=== PATIENT | female | born 1960 | race Caucasian/White ===

== ENCOUNTER 2020-09-30 08:32 | Inpatient (IN) | payer OTHER ==
[~2020-09-30] VITALS: Ht 165.1 cm; Wt 60.1 kg
[2020-09-30] MEDS ORDERED: methylPREDNISolone SOD SUCC 125 MG/2 ML VL ONE (08:40)
[2020-09-30] MEDS ORDERED: ALBUTEROL SULF 2.5 MG/0.5ML(0.5%) NEB SOLN NEB ONE (08:45)
[2020-09-30] MEDS ORDERED: methylPREDNISolone SOD SUCC 125 MG/2 ML VL IV ONE (08:45)
[2020-09-30 08:59] LABS: Basophils # (auto) 0 10 ^3/uL (0-0.2); Basophils % (auto) 0.4 % (0.0-2.0); Eosinophils # (auto) 0.3 10 ^3/uL (0-0.8); Eosinophils % (auto) 3.3 % (0.0-7.0); Hematocrit 37.8 % (36.0-46.0); Hemoglobin 12.5 g/dL (12.2-16.2); Lymphocytes # (auto) 1.7 10 ^3/uL (0.4-5.4); Lymphocytes % (auto) 21.5 % (10.0-50.0); Mean Corpuscular Hemoglobin 32.3 pg (28.0-32.0); Mean Corpuscular Hgb Conc. 33.2 g/dL (32.0-36.0); Mean Corpuscular Volume 97.4 fL (80.0-100.0); Monocytes # (auto) 0.3 10 ^3/uL (0-1.3); Monocytes % (auto) 3.5 % (0.0-12.0); Neutrophils # (auto) 5.5 10 ^3/uL (1.6-8.6); Neutrophils % (auto) 71.3 % (37.0-80.0); Platelet Count (auto) 293 10^3/uL (140-450); Red Blood Cells 3.88 10^6/uL (4.0-5.20); Red Cell Distribution Width 13.7 % (11.8-14.3); White Blood Cell 7.7 10^3/uL (4.4-10.8)
[2020-09-30] MEDS ORDERED: MAGNESIUM SULFATE 1GM/100ML 100 ML IV ONE (09:00)
[2020-09-30 09:13] LABS: Alanine Aminotransferase 17 U/L (13-56); Albumin 3.3 g/dL (3.4-5.0); Anion Gap 0 (5-15); Aspartate Aminotransferase 17 U/L (15-37); BUN/Creatinine Ratio 16.7; Blood Urea Nitrogen 12 mg/dL (7-18); Calcium 9.2 mg/dL (8.5-10.1); Carbon Dioxide 40 mmol/L (21-32); Chloride 101 mmol/L (98-107); GFR African American 106 mL/min; GFR Non-African American 88 mL/min; Glucose 206 mg/dL (74-106); Potassium 4.9 mmol/L (3.5-5.1); Sodium 141 mmol/L (136-145)
[2020-09-30 09:17] LABS: Alkaline Phosphatase 143 U/L (45-117); Bilirubin, Total 0.3 mg/dL (0.2-1.0); Total Protein 7.3 g/dL (6.4-8.2)
[2020-09-30] MEDS ORDERED: NITROGLYCERIN 0.4 MG SL TAB SL PRN (11:30)
[2020-09-30] MEDS ORDERED: ONDANSETRON HCL 4 MG/2 ML VIAL IV PRN (11:30)
[2020-09-30] MEDS ORDERED: HYDROcodone-ACET 5/325MG TAB PO PRN (11:30)
[2020-09-30] MEDS ORDERED: ACETAMINOPHEN 500 MG TAB PO PRN (11:30)
[2020-09-30] MEDS ORDERED: MORPHINE SULF INJ 2 MG/ML SYRINGE 1ML IV PRN ×2 (11:30)
[2020-09-30 12:05] VITALS: BP 118/67
[2020-09-30] MEDS ORDERED: IOHEXOL 350 MG/ML 100ML IJ ONE (12:55)
[2020-09-30] MEDS: ALBUTEROL SULF 2.5 MG/0.5ML(0.5%) NEB SOLN NEB SCH ×2 (13:06→19:13)
[2020-09-30] MEDS: IPRATROPIUM BROM 0.5 MG/2.5ML INH SOL NEB SCH ×2 (13:06→19:13)
[2020-09-30] MEDS: methylPREDNISolone SOD SUCC 125 MG/2 ML VL IV SCH ×2 (14:20→22:12)
[2020-09-30 17:33] VITALS: BP 143/78
[2020-09-30] MEDS: BUDESONIDE (INHALATION) 0.5 MG/2 ML NEB NEB SCH (19:13)
[2020-09-30 22:00] VITALS: BP 112/54
[2020-10-01 04:35] VITALS: BP 105/60
[2020-10-01] MEDS: methylPREDNISolone SOD SUCC 125 MG/2 ML VL IV SCH (06:02)
[2020-10-01] MEDS: BUDESONIDE (INHALATION) 0.5 MG/2 ML NEB NEB SCH (06:31)
[2020-10-01] MEDS: IPRATROPIUM BROM 0.5 MG/2.5ML INH SOL NEB SCH ×3 (06:31→18:50)
[2020-10-01] MEDS: ALBUTEROL SULF 2.5 MG/0.5ML(0.5%) NEB SOLN NEB SCH ×3 (06:31→18:49)
[2020-10-01 09:00] VITALS: BP 138/78
[2020-10-01] MEDS: LORATADINE 10 MG TAB PO SCH (09:30)
[2020-10-01] MEDS: AZITHROMYCIN 250 MG TAB PO SCH (09:33)
[2020-10-01] MEDS ORDERED: FAMOTIDINE 20 MG TAB PO SCH (10:00)
[2020-10-01] MEDS ORDERED: METOPROLOL SUCCINATE XL 50 MG TAB PO ONE (12:30)
[2020-10-01] MEDS ORDERED: ASPirin-EC 81 mg tab PO ONE (12:30)
[2020-10-01] MEDS ORDERED: CHOLECALCIFEROL (VITD3) 2,000 UNIT CAP/TAB PO ONE (12:30)
[2020-10-01 13:00] VITALS: BP 100/49
[2020-10-01] MEDS: methylPREDNISolone SOD SUCC 40 MG/ML VL IV SCH ×2 (14:08→21:47)
[2020-10-01 16:47] VITALS: BP 119/57
[2020-10-01] MEDS: BREZTRI AEROSPHERE IN SCH (21:48)
[2020-10-01 22:00] VITALS: BP 147/51
[2020-10-01] MEDS ORDERED: ATORVASTATIN 20 MG TAB PO SCH (22:00)
[2020-10-02 05:00] VITALS: BP 122/66
[2020-10-02] MEDS: IPRATROPIUM BROM 0.5 MG/2.5ML INH SOL NEB SCH ×2 (06:34→13:15)
[2020-10-02] MEDS: ALBUTEROL SULF 2.5 MG/0.5ML(0.5%) NEB SOLN NEB SCH ×2 (06:35→13:15)
[2020-10-02 09:00] VITALS: BP 110/49
[2020-10-02] MEDS: methylPREDNISolone SOD SUCC 40 MG/ML VL IV SCH (09:54)
[2020-10-02] MEDS: BREZTRI AEROSPHERE IN SCH (09:54)
[2020-10-02] MEDS: LORATADINE 10 MG TAB PO SCH (09:55)
[2020-10-02] MEDS: AZITHROMYCIN 250 MG TAB PO SCH (09:57)
[2020-10-02] MEDS ORDERED: ASPirin-EC 81 mg tab PO SCH (10:00)
[2020-10-02] MEDS ORDERED: CHOLECALCIFEROL (VITD3) 2,000 UNIT CAP/TAB PO SCH (10:00)
[2020-10-02] MEDS ORDERED: METOPROLOL SUCCINATE XL 50 MG TAB PO SCH (10:00)
[2020-10-02] MEDS ORDERED: FEXOFENADINE HCL 60 MG TAB PO ONE (10:45)
[2020-10-02] MEDS ORDERED: NYSTATIN (MOUTH-THROAT) 500,000 UNITS/5 ML SUSP MT ONE (10:45)
[2020-10-02] MEDS ORDERED: SALINE 0.65 % NASAL SPRAY 45ML BOTTLE EACHNOSTRI ONE (10:45)
[2020-10-02] MEDS ORDERED: FEXO-38 PO (11:18)
[2020-10-02] MEDS ORDERED: CHLO4TAB10 PO (11:18)
[2020-10-02] MEDS ORDERED: PRED20TA2 PO (11:18)
[2020-10-02] MEDS ORDERED: AZIT250T9 PO (11:18)
[2020-10-02] MEDS ORDERED: NYS5LQ MT (11:18)
[2020-10-02] MEDS ORDERED: NS45NSL EACHNOSTRI (11:18)
[2020-10-02] MEDS ORDERED: SALINE 0.65 % NASAL SPRAY 45ML BOTTLE EACHNOSTRI SCH (12:00)
[2020-10-02] MEDS ORDERED: NYSTATIN (MOUTH-THROAT) 500,000 UNITS/5 ML SUSP MT SCH (12:00)
[2020-10-02 12:10] VITALS: BP 110/49
[2020-10-02 13:00] VITALS: BP 131/81
[2020-10-02] MEDS ORDERED: FEXOFENADINE HCL 60 MG TAB PO SCH (22:00)
== END 2020-10-02 16:34 | disposition home or self-care (01) | DRG 189 ==
LOC: EDBD 08:32 → ER 08:32 → TELE 11:18 → TELE-CENTR 16:57
PROVIDERS: ADMIT Nurse Practitioner Acute Care; ATTEND Internal Medicine
DX: J96.21 Acute and chronic respiratory failure with hypoxia (principal); B37.0 Candidal stomatitis; J98.11 Atelectasis; J43.2 Centrilobular emphysema; R73.9 Hyperglycemia, unspecified; E78.5 Hyperlipidemia, unspecified; E88.09 Other disorders of plasma-protein metabolism, not elsewhere classified; I25.10 Atherosclerotic heart disease of native coronary artery without angina pectoris; J31.0 Chronic rhinitis; I25.2 Old myocardial infarction; Z87.891 Personal history of nicotine dependence; I10 Essential (primary) hypertension; Z99.81 Dependence on supplemental oxygen; Z20.822 Contact with and (suspected) exposure to COVID-19; Z91.012 Allergy to eggs
CPT/HCPCS: 36415; 71045; 71275; 80053; 83036; 83880; 84484; 85025; 87426; 93005; 94640; 94644; 96365; 96375; 99291; G0378

== ENCOUNTER 2021-03-29 17:04 | Inpatient (IN) | payer OTHER ==
[~2021-03-29] VITALS: Ht 162.6 cm; Wt 60.9 kg
[~2021-03-29 17:04] MED LIST: ALBUTEROL SULF 2.5 MG/0.5ML(0.5%) NEB SOLN NEB ONE; AZIT250T9 PO; CHLO4TAB10 PO; FEXO-90 PO; NS45NSL EACHNOSTRI; NYS5LQ MT; PRED20TA2 PO
[2021-03-29] MEDS ORDERED: EPINEPHrine HCL 1 MG/1 ML AMP ONE (17:07)
[2021-03-29] MEDS ORDERED: methylPREDNISolone SOD SUCC 125 MG/2 ML VL ONE (17:07)
[2021-03-29] MEDS ORDERED: diphenhdrAMINE HCL 50 MG/1 ML VL ONE (17:08)
[2021-03-29] MEDS ORDERED: methylPREDNISolone SOD SUCC 125 MG/2 ML VL IV ONE (17:15)
[2021-03-29] MEDS ORDERED: EPINEPHrine HCL 1 MG/1 ML AMP IM ONE (17:15)
[2021-03-29] MEDS ORDERED: diphenhdrAMINE HCL 50 MG/1 ML VL IV ONE (17:15)
[2021-03-29] MEDS ORDERED: FAMOTIDINE (10MG/ML) 2ML VL IV ONE (17:15)
[2021-03-29 18:17] LABS: Basophils # (auto) 0.1 10 ^3/uL (0-0.2); Basophils % (auto) 0.5 % (0.0-2.0); Eosinophils # (auto) 0.6 10 ^3/uL (0-0.8); Eosinophils % (auto) 3.9 % (0.0-7.0); Hematocrit 37.3 % (36.0-46.0); Hemoglobin 11.9 g/dL (12.2-16.2); Lymphocytes # (auto) 2.1 10 ^3/uL (0.4-5.4); Lymphocytes % (auto) 14.3 % (10.0-50.0); Mean Corpuscular Hemoglobin 30.7 pg (28.0-32.0); Mean Corpuscular Hgb Conc. 31.8 g/dL (32.0-36.0); Mean Corpuscular Volume 96.4 fL (80.0-100.0); Monocytes # (auto) 0.7 10 ^3/uL (0-1.3); Monocytes % (auto) 4.7 % (0.0-12.0); Neutrophils # (auto) 11.5 10 ^3/uL (1.6-8.6); Neutrophils % (auto) 76.6 % (37.0-80.0); Red Blood Cells 3.87 10^6/uL (4.0-5.20); Red Cell Distribution Width 13.4 % (11.8-14.3)
[2021-03-29 19:00] LABS: Albumin 2.9 g/dL (3.4-5.0); Calcium 9.3 mg/dL (8.5-10.1); Potassium 3.7 mmol/L (3.5-5.1)
[2021-03-29 19:02] LABS: BUN/Creatinine Ratio 18.6
[2021-03-29 19:11] LABS: Bilirubin, Total 0.3 mg/dL (0.2-1.0); Total Protein 7.1 g/dL (6.4-8.2)
[2021-03-29] MEDS: BUDESONIDE (INHALATION) 0.5 MG/2 ML NEB NEB SCH (22:20)
[2021-03-29] MEDS ORDERED: PRED20TA2 PO (23:34)
[2021-03-29] MEDS ORDERED: EPIN0.3I24 IJ (23:34)
[2021-03-29] MEDS ORDERED: DIPH25CA29 PO (23:37)
[2021-03-30] MEDS ORDERED: ENOXAPARIN SOD 100 MG/1 ML SYRINGE SC ONE (01:00)
[2021-03-30] MEDS ORDERED: ASPirin 325 MG TAB PO ONE (01:00)
[2021-03-30] MEDS ORDERED: diphenhdrAMINE HCL 50 MG/1 ML VL IV PRN (01:15)
[2021-03-30] MEDS ORDERED: ONDANSETRON HCL 4 MG/2 ML VIAL IV PRN (01:15)
[2021-03-30] MEDS ORDERED: ACETAMINOPHEN 325 MG TAB PO PRN (01:15)
[2021-03-30] MEDS ORDERED: DEXTROSE (50%) 50ML SYRG IV PRN (01:15)
[2021-03-30] MEDS ORDERED: DOCUSATE SOD 100 MG CAP PO PRN (01:15)
[2021-03-30] MEDS ORDERED: HYDROcodone-ACET 5/325MG TAB PO PRN (01:15)
[2021-03-30] MEDS ORDERED: NITROGLYCERIN 0.4 MG SL TAB SL PRN (01:30)
[2021-03-30] MEDS ORDERED: MORPHINE SULFATE INJECTION 2 MG/ML SYRG IV PRN (01:30)
[2021-03-30 05:20] VITALS: BP 104/54
[2021-03-30 06:00] VITALS: BP 104/54
[2021-03-30] MEDS: SODIUM CHLOR 0.9% PF (SALINE LOCK) 10ML VIAL/SYR IV SCH ×3 (06:00→22:03)
[2021-03-30] MEDS: ALBUTEROL SULF 2.5 MG/0.5ML(0.5%) NEB SOLN NEB SCH ×2 (06:00→19:25)
[2021-03-30] MEDS: IPRATROPIUM BROM 0.5 MG/2.5ML INH SOL NEB SCH ×2 (06:00→19:25)
[2021-03-30] MEDS: InsuLIN REG 1unit/0.01ml Soln (100units/ml) SC SCH ×4 (07:00→22:00)
[2021-03-30] MEDS: ACCU-CHEK COMFORT CURVE STRIP VI SCH ×4 (07:00→22:00)
[2021-03-30] MEDS ORDERED: ALBUAER3 IN (07:06)
[2021-03-30] MEDS ORDERED: LOSA25TA38 PO (07:06)
[2021-03-30] MEDS ORDERED: ATOR20TA50 PO (07:06)
[2021-03-30] MEDS ORDERED: BUDE1AER6 IN (07:06)
[2021-03-30] MEDS ORDERED: METO25TA93 PO (07:06)
[2021-03-30 08:45] LABS: Basophils # (auto) 0 10 ^3/uL (0-0.2); Basophils % (auto) 0.1 % (0.0-2.0); Eosinophils # (auto) 0 10 ^3/uL (0-0.8); Hemoglobin 11.5 g/dL (12.2-16.2); Lymphocytes # (auto) 0.6 10 ^3/uL (0.4-5.4); Lymphocytes % (auto) 4.4 % (10.0-50.0); Mean Corpuscular Hemoglobin 30.7 pg (28.0-32.0); Mean Corpuscular Hgb Conc. 31.9 g/dL (32.0-36.0); Mean Corpuscular Volume 96.4 fL (80.0-100.0); Monocytes # (auto) 0.4 10 ^3/uL (0-1.3); Monocytes % (auto) 2.8 % (0.0-12.0); Neutrophils # (auto) 12.4 10 ^3/uL (1.6-8.6); Neutrophils % (auto) 92.7 % (37.0-80.0); Red Blood Cells 3.74 10^6/uL (4.0-5.20); Red Cell Distribution Width 13.7 % (11.8-14.3); White Blood Cell 13.3 10^3/uL (4.4-10.8)
[2021-03-30] MEDS: methylPREDNISolone SOD SUCC 40 MG/ML VL IV SCH ×3 (08:47→22:03)
[2021-03-30] MEDS: FAMOTIDINE (10MG/ML) 2ML VL IV SCH ×2 (08:47→22:03)
[2021-03-30] MEDS: ASPirin 81 mg TAB PO SCH (08:48)
[2021-03-30] MEDS: ENOXAPARIN SOD 40 MG/0.4 ML SYRINGE SC SCH (08:48)
[2021-03-30 09:00] VITALS: BP 114/57
[2021-03-30 09:01] LABS: Albumin 2.8 g/dL (3.4-5.0); Calcium 9.7 mg/dL (8.5-10.1); Potassium 5.2 mmol/L (3.5-5.1)
[2021-03-30 09:17] LABS: BUN/Creatinine Ratio 22.1; Bilirubin, Total 0.4 mg/dL (0.2-1.0); Total Protein 7.4 g/dL (6.4-8.2)
[2021-03-30] MEDS: BUDESONIDE (INHALATION) 0.5 MG/2 ML NEB NEB SCH ×2 (09:57→19:25)
[2021-03-30 13:00] VITALS: BP 110/63
[2021-03-30 17:00] VITALS: BP 141/59
[2021-03-30 22:00] VITALS: BP 109/55
[2021-03-31 01:19] VITALS: BP 109/55
[2021-03-31 05:00] VITALS: BP 111/49
[2021-03-31] MEDS: ALBUTEROL SULF 2.5 MG/0.5ML(0.5%) NEB SOLN NEB SCH ×2 (06:05→11:01)
[2021-03-31] MEDS: IPRATROPIUM BROM 0.5 MG/2.5ML INH SOL NEB SCH ×2 (06:05→11:02)
[2021-03-31] MEDS: BUDESONIDE (INHALATION) 0.5 MG/2 ML NEB NEB SCH (06:05)
[2021-03-31 06:09] LABS: Basophils # (auto) 0.1 10 ^3/uL (0-0.2); Basophils % (auto) 0.4 % (0.0-2.0); Eosinophils # (auto) 0 10 ^3/uL (0-0.8); Hematocrit 36.3 % (36.0-46.0); Hemoglobin 11.5 g/dL (12.2-16.2); Lymphocytes # (auto) 0.5 10 ^3/uL (0.4-5.4); Mean Corpuscular Hemoglobin 30.4 pg (28.0-32.0); Mean Corpuscular Hgb Conc. 31.7 g/dL (32.0-36.0); Mean Corpuscular Volume 95.9 fL (80.0-100.0); Monocytes # (auto) 0.2 10 ^3/uL (0-1.3); Monocytes % (auto) 1.7 % (0.0-12.0); Neutrophils # (auto) 12.7 10 ^3/uL (1.6-8.6); Neutrophils % (auto) 93.9 % (37.0-80.0); Red Blood Cells 3.78 10^6/uL (4.0-5.20); Red Cell Distribution Width 13.6 % (11.8-14.3); White Blood Cell 13.5 10^3/uL (4.4-10.8)
[2021-03-31] MEDS: SODIUM CHLOR 0.9% PF (SALINE LOCK) 10ML VIAL/SYR IV SCH ×2 (06:19→11:07)
[2021-03-31] MEDS: methylPREDNISolone SOD SUCC 40 MG/ML VL IV SCH ×2 (06:19→14:24)
[2021-03-31] MEDS: InsuLIN REG 1unit/0.01ml Soln (100units/ml) SC SCH ×2 (06:19→11:06)
[2021-03-31] MEDS: ACCU-CHEK COMFORT CURVE STRIP VI SCH ×2 (06:19→11:07)
[2021-03-31 06:24] LABS: Potassium 5.1 mmol/L (3.5-5.1)
[2021-03-31 06:37] LABS: Albumin 2.7 g/dL (3.4-5.0); BUN/Creatinine Ratio 41.2; Calcium 9.9 mg/dL (8.5-10.1); Total Protein 6.2 g/dL (6.4-8.2)
[2021-03-31 06:44] LABS: Bilirubin, Total 0.4 mg/dL (0.2-1.0)
[2021-03-31] MEDS: ASPirin 81 mg TAB PO SCH (07:56)
[2021-03-31] MEDS: FAMOTIDINE (10MG/ML) 2ML VL IV SCH ×2 (07:56→09:09)
[2021-03-31] MEDS: ENOXAPARIN SOD 40 MG/0.4 ML SYRINGE SC SCH (07:56)
[2021-03-31 09:00] VITALS: BP 120/82
[2021-03-31] MEDS ORDERED: METOPROLOL TARTRATE 25 MG TAB PO ONE (12:15)
[2021-03-31 13:00] VITALS: BP 139/52
== END 2021-03-31 15:44 | disposition home or self-care (01) | DRG 915 ==
LOC: ER 17:04 → EDBD 17:04 → TELE 03-30 01:27 → TELE-WESTW 03-30 05:25
PROVIDERS: ADMIT Nurse Practitioner Family; ATTEND Internal Medicine Pulmonary Disease
DX: T80.52XA Anaphylactic reaction due to vaccination, initial encounter (principal); I21.4 Non-ST elevation (NSTEMI) myocardial infarction; J96.21 Acute and chronic respiratory failure with hypoxia; E88.09 Other disorders of plasma-protein metabolism, not elsewhere classified; J44.9 Chronic obstructive pulmonary disease, unspecified; D72.829 Elevated white blood cell count, unspecified; E78.5 Hyperlipidemia, unspecified; Z20.822 Contact with and (suspected) exposure to COVID-19; F41.9 Anxiety disorder, unspecified; R73.9 Hyperglycemia, unspecified; I10 Essential (primary) hypertension; Z80.0 Family history of malignant neoplasm of digestive organs; Z80.1 Family history of malignant neoplasm of trachea, bronchus and lung; Z87.891 Personal history of nicotine dependence
CPT/HCPCS: 36415; 71045; 80053; 82962; 83036; 84484; 85025; 87040; 87426; 93005; 93306; 94640; 96372; 96374; 96375; G0378; J0171; J3490

== ENCOUNTER 2021-04-13 21:26 | Inpatient (IN) | payer OTHER ==
[~2021-04-13] VITALS: Ht 165.1 cm; Wt 56.9 kg
[~2021-04-13 21:26] MED LIST changes: +ALBUAER3 IN; -ALBUTEROL SULF 2.5 MG/0.5ML(0.5%) NEB SOLN NEB ONE; +ATOR20TA50 PO; -AZIT250T9 PO; +BUDE1AER6 IN; -CHLO4TAB10 PO; -FEXO-90 PO; +LOSA25TA38 PO; +METO25TA93 PO
[2021-04-13 23:06] LABS: Basophils # (auto) 0 10 ^3/uL (0-0.2); Basophils % (auto) 0.5 % (0.0-2.0); Eosinophils # (auto) 0.3 10 ^3/uL (0-0.8); Eosinophils % (auto) 2.7 % (0.0-7.0); Hematocrit 32.2 % (36.0-46.0); Hemoglobin 10.3 g/dL (12.2-16.2); Lymphocytes # (auto) 0.9 10 ^3/uL (0.4-5.4); Lymphocytes % (auto) 9.4 % (10.0-50.0); Mean Corpuscular Hemoglobin 30.5 pg (28.0-32.0); Mean Corpuscular Volume 95.4 fL (80.0-100.0); Monocytes # (auto) 0.9 10 ^3/uL (0-1.3); Monocytes % (auto) 8.8 % (0.0-12.0); Neutrophils # (auto) 7.8 10 ^3/uL (1.6-8.6); Neutrophils % (auto) 78.6 % (37.0-80.0); Red Blood Cells 3.38 10^6/uL (4.0-5.20); Red Cell Distribution Width 13.5 % (11.8-14.3)
[2021-04-13 23:26] LABS: Albumin 2.5 g/dL (3.4-5.0); Calcium 8.8 mg/dL (8.5-10.1); Potassium 3.6 mmol/L (3.5-5.1)
[2021-04-13 23:31] LABS: BUN/Creatinine Ratio 26.1; Bilirubin, Total 0.2 mg/dL (0.2-1.0); Total Protein 6.7 g/dL (6.4-8.2)
[2021-04-14] MEDS ORDERED: NITROGLYCERIN 0.4 MG SL TAB SL PRN (10:45)
[2021-04-14] MEDS ORDERED: MORPHINE SULFATE INJECTION 2 MG/ML SYRG IV PRN (10:45)
[2021-04-14] MEDS ORDERED: AZITHROMYCIN 250 MG TAB PO ONE (11:06)
[2021-04-14] MEDS ORDERED: METOPROLOL TARTRATE 25 MG TAB PO ONE (11:09)
[2021-04-14 11:25] VITALS: BP 147/60
[2021-04-14] MEDS: ENOXAPARIN SOD 40 MG/0.4 ML SYRINGE SC SCH (11:34)
[2021-04-14] MEDS: IPRATROPIUM BROM 0.5 MG/2.5ML INH SOL NEB SCH ×4 (14:20→22:21)
[2021-04-14] MEDS: ALBUTEROL SULF 2.5 MG/0.5ML(0.5%) NEB SOLN NEB SCH ×4 (14:21→22:21)
[2021-04-14] MEDS ORDERED: THEO400T10 PO (14:29)
[2021-04-14] MEDS ORDERED: CEPH-322 PO (14:29)
[2021-04-14] MEDS: BUDESONIDE (INHALATION) 0.5 MG/2 ML NEB NEB SCH (22:21)
[2021-04-14] MEDS: methylPREDNISolone SOD SUCC 40 MG/ML VL IV SCH (22:24)
[2021-04-14] MEDS: ATORVASTATIN 20 MG TAB PO SCH (22:24)
[2021-04-14] MEDS: METOPROLOL TARTRATE 25 MG TAB PO SCH (22:25)
[2021-04-15 00:29] VITALS: BP 120/75
[2021-04-15 05:00] VITALS: BP 111/64
[2021-04-15 06:30] LABS: Albumin 2.7 g/dL (3.4-5.0); Calcium 9.5 mg/dL (8.5-10.1); Potassium 5.1 mmol/L (3.5-5.1)
[2021-04-15 06:34] LABS: Basophils # (auto) 0.1 10 ^3/uL (0-0.2); Basophils % (auto) 0.6 % (0.0-2.0); Eosinophils # (auto) 0 10 ^3/uL (0-0.8); Eosinophils % (auto) 0.1 % (0.0-7.0); Hematocrit 33.2 % (36.0-46.0); Hemoglobin 10.6 g/dL (12.2-16.2); Lymphocytes # (auto) 0.5 10 ^3/uL (0.4-5.4); Lymphocytes % (auto) 5.6 % (10.0-50.0); Mean Corpuscular Hemoglobin 30.6 pg (28.0-32.0); Mean Corpuscular Hgb Conc. 32.1 g/dL (32.0-36.0); Mean Corpuscular Volume 95.5 fL (80.0-100.0); Monocytes # (auto) 0.1 10 ^3/uL (0-1.3); Monocytes % (auto) 1.2 % (0.0-12.0); Neutrophils # (auto) 8.8 10 ^3/uL (1.6-8.6); Neutrophils % (auto) 92.5 % (37.0-80.0); Red Blood Cells 3.47 10^6/uL (4.0-5.20); Red Cell Distribution Width 13.6 % (11.8-14.3); White Blood Cell 9.5 10^3/uL (4.4-10.8)
[2021-04-15 06:36] LABS: BUN/Creatinine Ratio 34.4; Bilirubin, Total 0.4 mg/dL (0.2-1.0); Total Protein 6.1 g/dL (6.4-8.2)
[2021-04-15] MEDS: IPRATROPIUM BROM 0.5 MG/2.5ML INH SOL NEB SCH ×5 (08:01→22:31)
[2021-04-15] MEDS: ALBUTEROL SULF 2.5 MG/0.5ML(0.5%) NEB SOLN NEB SCH ×5 (08:02→22:31)
[2021-04-15 09:00] VITALS: BP 115/65
[2021-04-15] MEDS: methylPREDNISolone SOD SUCC 40 MG/ML VL IV SCH ×2 (09:23→23:09)
[2021-04-15] MEDS: METOPROLOL TARTRATE 25 MG TAB PO SCH ×2 (09:23→22:46)
[2021-04-15] MEDS: AZITHROMYCIN 250 MG TAB PO SCH (09:24)
[2021-04-15] MEDS: ENOXAPARIN SOD 40 MG/0.4 ML SYRINGE SC SCH (09:24)
[2021-04-15] MEDS: PANTOPRAZOLE 40 MG TAB PO SCH (09:24)
[2021-04-15] MEDS: BUDESONIDE (INHALATION) 0.5 MG/2 ML NEB NEB SCH ×2 (11:07→19:36)
[2021-04-15 13:00] VITALS: BP 120/60
[2021-04-15 17:00] VITALS: BP 119/61
[2021-04-15 22:10] VITALS: BP 113/45
[2021-04-15] MEDS: ATORVASTATIN 20 MG TAB PO SCH (22:45)
[2021-04-16] MEDS: ALBUTEROL SULF 2.5 MG/0.5ML(0.5%) NEB SOLN NEB SCH ×3 (02:00→12:12)
[2021-04-16] MEDS: IPRATROPIUM BROM 0.5 MG/2.5ML INH SOL NEB SCH ×3 (02:00→12:12)
[2021-04-16 05:24] VITALS: BP 128/54
[2021-04-16 09:00] VITALS: BP 137/74
[2021-04-16] MEDS: AZITHROMYCIN 250 MG TAB PO SCH (10:40)
[2021-04-16] MEDS: methylPREDNISolone SOD SUCC 40 MG/ML VL IV SCH (10:40)
[2021-04-16] MEDS: PANTOPRAZOLE 40 MG TAB PO SCH (10:41)
[2021-04-16] MEDS: ENOXAPARIN SOD 40 MG/0.4 ML SYRINGE SC SCH (10:41)
[2021-04-16] MEDS: METOPROLOL TARTRATE 25 MG TAB PO SCH ×2 (10:41→22:36)
[2021-04-16] MEDS: BUDESONIDE (INHALATION) 0.5 MG/2 ML NEB NEB SCH ×2 (12:13→21:12)
[2021-04-16] MEDS ORDERED: IPRATROPIUM BROM 0.5 MG/2.5ML INH SOL NEB PRN (12:30)
[2021-04-16] MEDS ORDERED: ALBUTEROL SULF 2.5 MG/0.5ML(0.5%) NEB SOLN NEB PRN (12:30)
[2021-04-16 13:00] VITALS: BP 137/96
[2021-04-16 17:00] VITALS: BP 144/84
[2021-04-16 22:00] VITALS: BP 111/43
[2021-04-16] MEDS: ATORVASTATIN 20 MG TAB PO SCH (22:35)
[2021-04-17 04:51] VITALS: BP 105/57
[2021-04-17] MEDS: BUDESONIDE (INHALATION) 0.5 MG/2 ML NEB NEB SCH (06:55)
[2021-04-17 09:00] VITALS: BP 105/56
[2021-04-17] MEDS: METOPROLOL TARTRATE 25 MG TAB PO SCH (09:50)
[2021-04-17] MEDS: ENOXAPARIN SOD 40 MG/0.4 ML SYRINGE SC SCH (09:51)
[2021-04-17] MEDS: AZITHROMYCIN 250 MG TAB PO SCH (09:51)
[2021-04-17] MEDS: PANTOPRAZOLE 40 MG TAB PO SCH (09:51)
[2021-04-17] MEDS ORDERED: predniSONE 20 MG TAB PO SCH (10:00)
[2021-04-17 12:00] VITALS: BP 116/62
[2021-04-17] MEDS ORDERED: AZIT500T PO (15:04)
[2021-04-17] MEDS ORDERED: PRED20TA2 PO (15:04)
== END 2021-04-17 17:00 | disposition home or self-care (01) | DRG 189 ==
LOC: EDBD 21:26 → ER 21:28 → TELE 04-14 10:38 → TELE-WESTW 04-14 23:50
PROVIDERS: ADMIT Internal Medicine; ATTEND Internal Medicine
DX: J96.21 Acute and chronic respiratory failure with hypoxia (principal); J43.2 Centrilobular emphysema; E88.09 Other disorders of plasma-protein metabolism, not elsewhere classified; J40 Bronchitis, not specified as acute or chronic; I10 Essential (primary) hypertension; E78.5 Hyperlipidemia, unspecified; E04.2 Nontoxic multinodular goiter; D64.9 Anemia, unspecified; E87.5 Hyperkalemia; R00.0 Tachycardia, unspecified; E05.90 Thyrotoxicosis, unspecified without thyrotoxic crisis or storm; Z87.891 Personal history of nicotine dependence; J43.9 Emphysema, unspecified; Z80.0 Family history of malignant neoplasm of digestive organs; Z80.1 Family history of malignant neoplasm of trachea, bronchus and lung; Z85.05 Personal history of malignant neoplasm of liver; Z87.892 Personal history of anaphylaxis; Z88.7 Allergy status to serum and vaccine; Z91.012 Allergy to eggs
CPT/HCPCS: 36415; 71045; 71250; 76536; 80053; 80061; 82306; 83735; 83880; 84436; 84443; 84481; 84484; 85025; 85379; 87081; 87426; 87804; 93005; 94640; 97163; G0378

== ENCOUNTER 2021-10-31 22:31 | Inpatient (IN) | payer OTHER ==
[~2021-10-31] VITALS: Ht 170.2 cm; Wt 67.7 kg
[2021-10-31 22:30] VITALS: BP 132/89
[~2021-10-31 22:31] MED LIST changes: +AZIT500T PO; +CEPH-322 PO; +THEO400T10 PO
[2021-10-31] MEDS ORDERED: MIDAZOLAM HCL 2MG/2ML 2ml VIAL (1mg/ml) ONE (22:34)
[2021-10-31] MEDS ORDERED: ETOMIDATE (2MG/ML) 20ML VIAL IV ONE ×2 (22:34→22:45)
[2021-10-31] MEDS ORDERED: ROCURONIUM 10MG/ML 10ML VIAL IV ONE ×2 (22:34→22:45)
[2021-10-31] MEDS ORDERED: PROPOFOL 100 ML IV ONE (22:39)
[2021-10-31] MEDS ORDERED: methylPREDNISolone SOD SUCC 125 MG/2 ML VL ONE (22:42)
[2021-10-31] MEDS ORDERED: ALBUTEROL SULF 2.5 MG/0.5ML(0.5%) NEB SOLN ONE (22:45)
[2021-10-31] MEDS ORDERED: MAGNESIUM SULFATE 1GM/100ML 200 ML IV ONE (22:45)
[2021-10-31] MEDS ORDERED: MIDAZOLAM HCL 2MG/2ML 2ml VIAL (1mg/ml) IV ONE (22:45)
[2021-10-31] MEDS: MIDAZOLAM DRIP 50 mg/50mL 50 ML IV SCH (22:55)
[2021-10-31] MEDS ORDERED: NOREPINEPHRINE 8 MG/250ML KIT 250 ML IV ONE (22:59)
[2021-10-31] MEDS: MAGNESIUM SULFATE 1GM/100ML 100 ML IV SCH (23:00)
[2021-10-31] MEDS: NOREPINEPHRINE 8 MG/250ML KIT 250 ML IV SCH (23:00)
[2021-10-31 23:18] LABS: Basophils # (auto) 0.1 10 ^3/uL (0-0.2); Basophils % (auto) 0.6 % (0.0-2.0); Eosinophils # (auto) 0.1 10 ^3/uL (0-0.8); Eosinophils % (auto) 0.6 % (0.0-7.0); Hematocrit 38.6 % (36.0-46.0); Lymphocytes # (auto) 2.3 10 ^3/uL (0.4-5.4); Lymphocytes % (auto) 16.8 % (10.0-50.0); Mean Corpuscular Hemoglobin 31.3 pg (28.0-32.0); Mean Corpuscular Volume 100.9 fL (80.0-100.0); Monocytes # (auto) 0.4 10 ^3/uL (0-1.3); Monocytes % (auto) 2.7 % (0.0-12.0); Neutrophils # (auto) 10.7 10 ^3/uL (1.6-8.6); Neutrophils % (auto) 79.3 % (37.0-80.0); Nucleated Red Blood Cells % 0.2 %; Red Blood Cells 3.83 10^6/uL (4.0-5.20); Red Cell Distribution Width 13.2 % (11.8-14.3); White Blood Cell 13.5 10^3/uL (4.4-10.8)
[2021-10-31 23:29] LABS: Albumin 3.1 g/dL (3.4-5.0); BUN/Creatinine Ratio 17.6; Calcium 9.5 mg/dL (8.5-10.1); Potassium 4.9 mmol/L (3.5-5.1)
[2021-10-31] MEDS ORDERED: methylPREDNISolone SOD SUCC 125 MG/2 ML VL IV ONE (23:30)
[2021-10-31 23:33] LABS: Bilirubin, Total 0.3 mg/dL (0.2-1.0); Total Protein 6.8 g/dL (6.4-8.2)
[2021-10-31] MEDS ORDERED: IOHEXOL 350 MG/ML 100ML IJ ONE (23:35)
[2021-11-01] VITALS (72 sets, daily range): BP systolic 82–134; BP diastolic 45–84
[2021-11-01] MEDS: PROPOFOL 100 ML IV SCH ×2 (00:20→15:26)
[2021-11-01 02:00] LABS: Urine Bacteria NONE SEEN /hpf (None Seen); Urine Blood 2+ /uL (Negative); Urine Hyaline Cast FEW /lpf (0 - 2); Urine Mucus FEW (None Seen); Urine Specific Gravity 1.022 (1.001-1.035); Urine WBC 3 /hpf (0 - 5)
[2021-11-01] MEDS ORDERED: cefTRIAXone 1GM/50ML D5W 50 ML IV ONE (02:30)
[2021-11-01] MEDS ORDERED: AZITHROMYCIN 500MG/ 250ML 250 ML IV ONE ×2 (02:30→10:45)
[2021-11-01] MEDS ORDERED: ONDANSETRON HCL 4 MG/2 ML VIAL IV PRN (02:45)
[2021-11-01] MEDS ORDERED: DEXTROSE (50%) 50ML SYRG IV PRN (02:45)
[2021-11-01] MEDS ORDERED: NITROGLYCERIN 0.4 MG SL TAB SL PRN (03:30)
[2021-11-01] MEDS ORDERED: MORPHINE SULFATE INJ 2 MG/ml SYRG IV PRN (03:30)
[2021-11-01] MEDS: ACCU-CHEK COMFORT CURVE STRIP VI SCH ×5 (04:28→20:32)
[2021-11-01] MEDS: InsuLIN REG 1unit/0.01ml Soln (100units/ml) SC SCH ×5 (04:29→20:33)
[2021-11-01 04:31] LABS: Albumin 2.8 g/dL (3.4-5.0); Calcium 8.2 mg/dL (8.5-10.1)
[2021-11-01 04:34] LABS: BUN/Creatinine Ratio 16.1
[2021-11-01 04:36] LABS: Basophils # (auto) 0 10 ^3/uL (0-0.2); Basophils % (auto) 0.1 % (0.0-2.0); Bilirubin, Total 0.4 mg/dL (0.2-1.0); Eosinophils # (auto) 0 10 ^3/uL (0-0.8); Hematocrit 34.6 % (36.0-46.0); Lymphocytes # (auto) 0.2 10 ^3/uL (0.4-5.4); Lymphocytes % (auto) 1.8 % (10.0-50.0); Mean Corpuscular Hemoglobin 31.1 pg (28.0-32.0); Mean Corpuscular Hgb Conc. 31.9 g/dL (32.0-36.0); Mean Corpuscular Volume 97.4 fL (80.0-100.0); Monocytes # (auto) 0.3 10 ^3/uL (0-1.3); Monocytes % (auto) 2.5 % (0.0-12.0); Neutrophils % (auto) 95.6 % (37.0-80.0); Red Blood Cells 3.55 10^6/uL (4.0-5.20); Red Cell Distribution Width 13.2 % (11.8-14.3); White Blood Cell 12.5 10^3/uL (4.4-10.8)
[2021-11-01] MEDS ORDERED: SODIUM CHLORIDE 0.9% 2,000 ML IV ONE (05:00)
[2021-11-01 05:05] LABS: INR 1.05 (0.9-1.15); Partial Thromboplastin Time 23.6 sec (23.6-33.0)
[2021-11-01 05:21] LABS: Alcohol, Urine < 3.0 mg/dL (0-10); Amphetamine Screen, Urine NEGATIVE (NEGATIVE); Barbiturate Scree,Urine NEGATIVE (NEGATIVE); Benzodiazephine Screen, Urine POSITIVE (NEGATIVE); Cannabinoid Screen, Urine NEGATIVE (NEGATIVE); Cocaine Screen, Urine NEGATIVE (NEGATIVE); Opiate Scree,Urine NEGATIVE (NEGATIVE); Phencyclidine Screen, Urine NEGATIVE (NEGATIVE)
[2021-11-01] MEDS: MIDAZOLAM DRIP 50 mg/50mL 50 ML IV SCH ×2 (09:15→15:26)
[2021-11-01] MEDS: NOREPINEPHRINE 8 MG/250ML KIT 250 ML IV SCH ×2 (09:18→17:51)
[2021-11-01] MEDS ORDERED: ENOXAPARIN SOD 40 MG/0.4 ML SYRINGE SC SCH (10:00)
[2021-11-01] MEDS ORDERED: LISINOPRIL 20 MG TAB PO ONE (10:45)
[2021-11-01] MEDS ORDERED: ATORVASTATIN 20 MG TAB PO ONE (10:45)
[2021-11-01] MEDS: FAMOTIDINE (10MG/ML) 2ML VL IV SCH ×2 (11:05→21:17)
[2021-11-01] MEDS: ASPirin 81 mg TAB PO SCH (11:05)
[2021-11-01] MEDS: SODIUM CHLORIDE 0.9% 1,000 ML IV SCH (13:00)
[2021-11-01] MEDS: cefTRIAXone 1GM/50ML D5W 50 ML IV SCH (21:17)
[2021-11-01] MEDS: ATORVASTATIN 20 MG TAB PO SCH (21:18)
[2021-11-01] MEDS: METOPROLOL TARTRATE 50 MG TAB PO SCH (21:19)
[2021-11-01] MEDS: ENOXAPARIN SOD 60 MG/0.6 ML SYRINGE SC SCH (21:19)
[2021-11-02] VITALS (100 sets, daily range): BP systolic 71–168; BP diastolic 33–91
[2021-11-02] MEDS: PROPOFOL 100 ML IV SCH ×2 (00:29→12:25)
[2021-11-02] MEDS: InsuLIN REG 1unit/0.01ml Soln (100units/ml) SC SCH ×6 (00:33→20:00)
[2021-11-02] MEDS: SODIUM CHLORIDE 0.9% 1,000 ML IV SCH ×4 (01:57→21:26)
[2021-11-02] MEDS: MIDAZOLAM DRIP 50 mg/50mL 50 ML IV SCH ×2 (01:58→17:40)
[2021-11-02 04:15] LABS: Basophils # (auto) 0.1 10 ^3/uL (0-0.2); Basophils % (auto) 0.4 % (0.0-2.0); Eosinophils # (auto) 0 10 ^3/uL (0-0.8); Eosinophils % (auto) 0.1 % (0.0-7.0); Hematocrit 36.5 % (36.0-46.0); Hemoglobin 11.7 g/dL (12.2-16.2); Lymphocytes # (auto) 1.5 10 ^3/uL (0.4-5.4); Lymphocytes % (auto) 8.9 % (10.0-50.0); Mean Corpuscular Volume 96.7 fL (80.0-100.0); Monocytes # (auto) 1.7 10 ^3/uL (0-1.3); Neutrophils # (auto) 13.5 10 ^3/uL (1.6-8.6); Neutrophils % (auto) 80.6 % (37.0-80.0); Red Blood Cells 3.78 10^6/uL (4.0-5.20); White Blood Cell 16.7 10^3/uL (4.4-10.8)
[2021-11-02] MEDS: ACCU-CHEK COMFORT CURVE STRIP VI SCH ×6 (04:21→20:20)
[2021-11-02 04:24] LABS: Albumin 2.8 g/dL (3.4-5.0); BUN/Creatinine Ratio 20.9; Calcium 8.7 mg/dL (8.5-10.1); Potassium 3.7 mmol/L (3.5-5.1)
[2021-11-02 04:27] LABS: Lactic Acid w/Reflex 2.5 mmol/L (0.4-2.0)
[2021-11-02 04:34] LABS: Bilirubin, Total 0.2 mg/dL (0.2-1.0)
[2021-11-02] MEDS: NOREPINEPHRINE 8 MG/250ML KIT 250 ML IV SCH (09:00)
[2021-11-02] MEDS: METOPROLOL TARTRATE 50 MG TAB PO SCH ×2 (10:00→22:48)
[2021-11-02] MEDS: LISINOPRIL 20 MG TAB PO SCH (10:00)
[2021-11-02] MEDS: ASPirin 81 mg TAB PO SCH (10:02)
[2021-11-02] MEDS: AZITHROMYCIN 500MG/ 250ML 250 ML IV SCH (10:02)
[2021-11-02] MEDS: ENOXAPARIN SOD 60 MG/0.6 ML SYRINGE SC SCH ×2 (10:03→22:47)
[2021-11-02] MEDS: FAMOTIDINE (10MG/ML) 2ML VL IV SCH ×2 (10:05→22:47)
[2021-11-02] MEDS: cefTRIAXone 1GM/50ML D5W 50 ML IV SCH (21:26)
[2021-11-02] MEDS: ATORVASTATIN 20 MG TAB PO SCH (22:47)
[2021-11-03] VITALS (103 sets, daily range): BP systolic 91–147; BP diastolic 5–107
[2021-11-03] MEDS: ACCU-CHEK COMFORT CURVE STRIP VI SCH ×5 (00:06→17:18)
[2021-11-03] MEDS: PROPOFOL 100 ML IV SCH ×3 (00:50→14:27)
[2021-11-03] MEDS: InsuLIN REG 1unit/0.01ml Soln (100units/ml) SC SCH ×5 (04:00→17:18)
[2021-11-03] MEDS: SODIUM CHLORIDE 0.9% 1,000 ML IV SCH ×2 (08:17→22:24)
[2021-11-03] MEDS: ASPirin 81 mg TAB PO SCH (09:25)
[2021-11-03] MEDS: FAMOTIDINE (10MG/ML) 2ML VL IV SCH ×2 (09:25→22:23)
[2021-11-03] MEDS: AZITHROMYCIN 500MG/ 250ML 250 ML IV SCH (09:26)
[2021-11-03] MEDS ORDERED: DEXTROSE (50%) 50ML SYRG IV PRN (09:45)
[2021-11-03] MEDS: LISINOPRIL 20 MG TAB PO SCH (09:47)
[2021-11-03] MEDS: METOPROLOL TARTRATE 50 MG TAB PO SCH ×2 (09:47→22:22)
[2021-11-03] MEDS: cefTRIAXone 1GM/50ML D5W 50 ML IV SCH (21:00)
[2021-11-03] MEDS: DOXYCYCLINE 100MG/250ML 250 ML IV SCH (22:20)
[2021-11-03] MEDS: ATORVASTATIN 20 MG TAB PO SCH (22:21)
[2021-11-04] VITALS (101 sets, daily range): BP systolic 85–122; BP diastolic 38–76
[2021-11-04] MEDS: PROPOFOL 100 ML IV SCH ×2 (03:04→11:06)
[2021-11-04 04:04] LABS: Basophils # (auto) 0.1 10 ^3/uL (0-0.2); Basophils % (auto) 0.5 % (0.0-2.0); Eosinophils # (auto) 0.3 10 ^3/uL (0-0.8); Hematocrit 33.9 % (36.0-46.0); Hemoglobin 10.6 g/dL (12.2-16.2); Lymphocytes # (auto) 1.3 10 ^3/uL (0.4-5.4); Lymphocytes % (auto) 12.5 % (10.0-50.0); Mean Corpuscular Hemoglobin 31.4 pg (28.0-32.0); Mean Corpuscular Hgb Conc. 31.3 g/dL (32.0-36.0); Mean Corpuscular Volume 100.1 fL (80.0-100.0); Monocytes # (auto) 0.7 10 ^3/uL (0-1.3); Monocytes % (auto) 6.2 % (0.0-12.0); Neutrophils # (auto) 8.3 10 ^3/uL (1.6-8.6); Neutrophils % (auto) 77.8 % (37.0-80.0); Nucleated Red Blood Cells % 0.9 %; Red Blood Cells 3.39 10^6/uL (4.0-5.20); Red Cell Distribution Width 13.7 % (11.8-14.3); White Blood Cell 10.7 10^3/uL (4.4-10.8)
[2021-11-04 04:20] LABS: Albumin 2.1 g/dL (3.4-5.0); Potassium 3.7 mmol/L (3.5-5.1)
[2021-11-04 04:25] LABS: BUN/Creatinine Ratio 35.4; Bilirubin, Total 0.2 mg/dL (0.2-1.0); Total Protein 5.3 g/dL (6.4-8.2)
[2021-11-04 04:39] LABS: INR 1.05 (0.9-1.15); Partial Thromboplastin Time 27.1 sec (23.6-33.0)
[2021-11-04] MEDS: InsuLIN REG 1unit/0.01ml Soln (100units/ml) SC SCH ×4 (06:00→18:00)
[2021-11-04] MEDS: ACCU-CHEK COMFORT CURVE STRIP VI SCH ×4 (06:00→18:11)
[2021-11-04] MEDS ORDERED: FUROSEMIDE 40 MG/4 ML VIAL IV ONE (09:00)
[2021-11-04] MEDS: METOPROLOL TARTRATE 50 MG TAB PO SCH ×2 (09:09→22:00)
[2021-11-04] MEDS: ASPirin 81 mg TAB PO SCH (09:09)
[2021-11-04] MEDS: FAMOTIDINE (10MG/ML) 2ML VL IV SCH ×2 (09:10→22:00)
[2021-11-04] MEDS: DOXYCYCLINE 100MG/250ML 250 ML IV SCH ×2 (09:10→22:00)
[2021-11-04] MEDS: LISINOPRIL 20 MG TAB PO SCH (09:10)
[2021-11-04] MEDS: SODIUM CHLORIDE 0.9% 1,000 ML IV SCH ×3 (09:45→22:00)
[2021-11-04] MEDS: NOREPINEPHRINE 8 MG/250ML KIT 250 ML IV SCH ×2 (10:28→23:00)
[2021-11-04] MEDS ORDERED: LIDOCAINE 2%HCL (LOCAL ANESTH.) INJ 10ml MDV ONE (11:01)
[2021-11-04] MEDS ORDERED: IODIXANOL 320MG/ML 100ML BTL IV ONE (11:01)
[2021-11-04] MEDS ORDERED: ANGIOMAX 250 MG VIAL IV ONE (11:22)
[2021-11-04] MEDS ORDERED: SODIUM CHL 0.9% 0 ML ONE (11:22)
[2021-11-04] MEDS: MIDAZOLAM DRIP 50 mg/50mL 50 ML IV SCH ×2 (12:19→17:29)
[2021-11-04] MEDS: cefTRIAXone 1GM/50ML D5W 50 ML IV SCH (21:00)
[2021-11-04] MEDS: ATORVASTATIN 20 MG TAB PO SCH (22:00)
[2021-11-05] VITALS (100 sets, daily range): BP systolic 81–135; BP diastolic 18–77
[2021-11-05 04:36] LABS: BUN/Creatinine Ratio 31.6; Calcium 8.6 mg/dL (8.5-10.1); Potassium 3.4 mmol/L (3.5-5.1)
[2021-11-05] MEDS: InsuLIN REG 1unit/0.01ml Soln (100units/ml) SC SCH ×4 (06:00→18:00)
[2021-11-05] MEDS: ACCU-CHEK COMFORT CURVE STRIP VI SCH ×4 (06:28→18:03)
[2021-11-05] MEDS: MIDAZOLAM DRIP 50 mg/50mL 50 ML IV SCH (07:10)
[2021-11-05] MEDS ORDERED: FUROSEMIDE 20 MG/2 ML VIAL IV ONE (07:15)
[2021-11-05] MEDS: DOXYCYCLINE 100MG/250ML 250 ML IV SCH ×2 (10:06→21:26)
[2021-11-05] MEDS: FUROSEMIDE 40 MG/4 ML VIAL IV SCH (10:06)
[2021-11-05] MEDS: FAMOTIDINE (10MG/ML) 2ML VL IV SCH ×2 (10:06→21:21)
[2021-11-05] MEDS: LISINOPRIL 20 MG TAB PO SCH (10:08)
[2021-11-05] MEDS: ASPirin 81 mg TAB PO SCH (10:09)
[2021-11-05] MEDS: METOPROLOL TARTRATE 50 MG TAB PO SCH ×2 (10:09→21:21)
[2021-11-05] MEDS: NOREPINEPHRINE 8 MG/250ML KIT 250 ML IV SCH (11:30)
[2021-11-05] MEDS: cefTRIAXone 1GM/50ML D5W 50 ML IV SCH (20:57)
[2021-11-05] MEDS: ATORVASTATIN 20 MG TAB PO SCH (21:21)
[2021-11-05] MEDS: PROPOFOL 100 ML IV SCH (22:45)
[2021-11-06] VITALS (100 sets, daily range): BP systolic 63–137; BP diastolic 21–105
[2021-11-06] MEDS: ACCU-CHEK COMFORT CURVE STRIP VI SCH ×4 (00:11→18:00)
[2021-11-06 05:20] LABS: BUN/Creatinine Ratio 35.8; Basophils # (auto) 0.1 10 ^3/uL (0-0.2); Basophils % (auto) 0.4 % (0.0-2.0); Calcium 9.3 mg/dL (8.5-10.1); Eosinophils # (auto) 0.2 10 ^3/uL (0-0.8); Eosinophils % (auto) 1.6 % (0.0-7.0); Hematocrit 31.1 % (36.0-46.0); Hemoglobin 9.9 g/dL (12.2-16.2); Lymphocytes # (auto) 0.9 10 ^3/uL (0.4-5.4); Lymphocytes % (auto) 7.9 % (10.0-50.0); Mean Corpuscular Hemoglobin 30.8 pg (28.0-32.0); Mean Corpuscular Hgb Conc. 31.7 g/dL (32.0-36.0); Mean Corpuscular Volume 97.1 fL (80.0-100.0); Monocytes % (auto) 8.6 % (0.0-12.0); Neutrophils # (auto) 9.8 10 ^3/uL (1.6-8.6); Neutrophils % (auto) 81.5 % (37.0-80.0); Nucleated Red Blood Cells % 0.1 %; Potassium 3.5 mmol/L (3.5-5.1); Red Blood Cells 3.21 10^6/uL (4.0-5.20); Red Cell Distribution Width 13.6 % (11.8-14.3)
[2021-11-06] MEDS: InsuLIN REG 1unit/0.01ml Soln (100units/ml) SC SCH ×4 (06:00→18:00)
[2021-11-06] MEDS: METOPROLOL TARTRATE 50 MG TAB PO SCH ×2 (10:00→20:13)
[2021-11-06] MEDS ORDERED: FLUCONAZOLE 200MG/100ML 100 ML IV SCH (10:00)
[2021-11-06] MEDS: LISINOPRIL 20 MG TAB PO SCH (10:00)
[2021-11-06] MEDS: FAMOTIDINE (10MG/ML) 2ML VL IV SCH ×2 (10:32→21:51)
[2021-11-06] MEDS: ASPirin 81 mg TAB PO SCH (10:32)
[2021-11-06] MEDS: DOXYCYCLINE 100MG/250ML 250 ML IV SCH ×2 (10:32→21:52)
[2021-11-06] MEDS: FUROSEMIDE 40 MG/4 ML VIAL IV SCH (10:32)
[2021-11-06] MEDS: MICAFUNGIN SODIUM 100 MG in SODIUM CHL 0.9% 100 ML IV SCH (12:15)
[2021-11-06] MEDS: ACETAMINOPHEN 650 MG RECT SUPP PR PRN (19:23)
[2021-11-06] MEDS: cefTRIAXone 1GM/50ML D5W 50 ML IV SCH (20:16)
[2021-11-06] MEDS: ATORVASTATIN 20 MG TAB PO SCH (21:52)
[2021-11-06] MEDS: PROPOFOL 100 ML IV SCH (22:45)
[2021-11-06] MEDS: NOREPINEPHRINE 8 MG/250ML KIT 250 ML IV SCH (23:00)
[2021-11-06] MEDS: MIDAZOLAM DRIP 50 mg/50mL 50 ML IV SCH (23:30)
[2021-11-07] VITALS (61 sets, daily range): BP systolic 87–140; BP diastolic 35–87
[2021-11-07] MEDS: ACCU-CHEK COMFORT CURVE STRIP VI SCH ×4 (00:32→18:00)
[2021-11-07 04:17] LABS: Basophils # (auto) 0 10 ^3/uL (0-0.2); Basophils % (auto) 0.3 % (0.0-2.0); Eosinophils # (auto) 0.2 10 ^3/uL (0-0.8); Eosinophils % (auto) 1.6 % (0.0-7.0); Hematocrit 30.1 % (36.0-46.0); Hemoglobin 9.6 g/dL (12.2-16.2); Lymphocytes # (auto) 0.9 10 ^3/uL (0.4-5.4); Mean Corpuscular Hemoglobin 30.9 pg (28.0-32.0); Mean Corpuscular Hgb Conc. 31.9 g/dL (32.0-36.0); Mean Corpuscular Volume 96.8 fL (80.0-100.0); Monocytes # (auto) 1.1 10 ^3/uL (0-1.3); Monocytes % (auto) 9.7 % (0.0-12.0); Neutrophils # (auto) 9.5 10 ^3/uL (1.6-8.6); Neutrophils % (auto) 80.4 % (37.0-80.0); Nucleated Red Blood Cells % 0.1 %; Red Blood Cells 3.11 10^6/uL (4.0-5.20); Red Cell Distribution Width 13.4 % (11.8-14.3); White Blood Cell 11.8 10^3/uL (4.4-10.8)
[2021-11-07 04:32] LABS: BUN/Creatinine Ratio 41.7; Calcium 9.4 mg/dL (8.5-10.1); Potassium 3.9 mmol/L (3.5-5.1)
[2021-11-07] MEDS: InsuLIN REG 1unit/0.01ml Soln (100units/ml) SC SCH ×4 (06:00→18:00)
[2021-11-07] MEDS: LISINOPRIL 20 MG TAB PO SCH (10:00)
[2021-11-07] MEDS: METOPROLOL TARTRATE 50 MG TAB PO SCH ×2 (10:00→21:40)
[2021-11-07] MEDS: MICAFUNGIN SODIUM 100 MG in SODIUM CHL 0.9% 100 ML IV SCH (10:00)
[2021-11-07] MEDS: FAMOTIDINE (10MG/ML) 2ML VL IV SCH ×2 (10:53→21:40)
[2021-11-07] MEDS: ASPirin 81 mg TAB PO SCH (10:54)
[2021-11-07] MEDS: DOXYCYCLINE 100MG/250ML 250 ML IV SCH ×2 (10:54→21:40)
[2021-11-07] MEDS: FUROSEMIDE 40 MG/4 ML VIAL IV SCH (10:58)
[2021-11-07] MEDS: cefTRIAXone 1GM/50ML D5W 50 ML IV SCH (20:18)
[2021-11-07] MEDS: ATORVASTATIN 20 MG TAB PO SCH (21:40)
[2021-11-07] MEDS: PROPOFOL 100 ML IV SCH (22:45)
[2021-11-07] MEDS: NOREPINEPHRINE 8 MG/250ML KIT 250 ML IV SCH (23:00)
[2021-11-07] MEDS: MIDAZOLAM DRIP 50 mg/50mL 50 ML IV SCH (23:30)
[2021-11-08] VITALS (53 sets, daily range): BP systolic 90–176; BP diastolic 39–92
[2021-11-08] MEDS: ACCU-CHEK COMFORT CURVE STRIP VI SCH ×5 (00:09→23:44)
[2021-11-08] MEDS: ACETAMINOPHEN 650 MG RECT SUPP PR PRN (00:12)
[2021-11-08 04:07] LABS: Basophils # (auto) 0 10 ^3/uL (0-0.2); Basophils % (auto) 0.3 % (0.0-2.0); Eosinophils # (auto) 0.2 10 ^3/uL (0-0.8); Eosinophils % (auto) 1.1 % (0.0-7.0); Hemoglobin 9.8 g/dL (12.2-16.2); Lymphocytes % (auto) 6.3 % (10.0-50.0); Mean Corpuscular Hemoglobin 31.9 pg (28.0-32.0); Mean Corpuscular Hgb Conc. 32.7 g/dL (32.0-36.0); Mean Corpuscular Volume 97.6 fL (80.0-100.0); Monocytes # (auto) 1.5 10 ^3/uL (0-1.3); Neutrophils # (auto) 12.5 10 ^3/uL (1.6-8.6); Neutrophils % (auto) 82.3 % (37.0-80.0); Nucleated Red Blood Cells % 0.1 %; Red Blood Cells 3.07 10^6/uL (4.0-5.20); Red Cell Distribution Width 13.5 % (11.8-14.3); White Blood Cell 15.2 10^3/uL (4.4-10.8)
[2021-11-08 04:22] LABS: Potassium 3.9 mmol/L (3.5-5.1)
[2021-11-08 04:27] LABS: BUN/Creatinine Ratio 48.1; Calcium 9.5 mg/dL (8.5-10.1)
[2021-11-08] MEDS: InsuLIN REG 1unit/0.01ml Soln (100units/ml) SC SCH ×5 (06:00→23:45)
[2021-11-08] MEDS: LISINOPRIL 20 MG TAB PO SCH (10:00)
[2021-11-08] MEDS: ASPirin 81 mg TAB PO SCH (10:35)
[2021-11-08] MEDS: FAMOTIDINE (10MG/ML) 2ML VL IV SCH ×2 (10:35→21:20)
[2021-11-08] MEDS: FUROSEMIDE 40 MG/4 ML VIAL IV SCH (10:35)
[2021-11-08] MEDS: DOXYCYCLINE 100MG/250ML 250 ML IV SCH ×2 (10:36→22:12)
[2021-11-08] MEDS: METOPROLOL TARTRATE 50 MG TAB PO SCH ×2 (10:36→21:20)
[2021-11-08] MEDS: MICAFUNGIN SODIUM 100 MG in SODIUM CHL 0.9% 100 ML IV SCH (10:46)
[2021-11-08] MEDS: ATORVASTATIN 20 MG TAB PO SCH (21:20)
[2021-11-08] MEDS: cefTRIAXone 1GM/50ML D5W 50 ML IV SCH (21:20)
[2021-11-08] MEDS: PROPOFOL 100 ML IV SCH (22:45)
[2021-11-08] MEDS: NOREPINEPHRINE 8 MG/250ML KIT 250 ML IV SCH (23:00)
[2021-11-08] MEDS: MIDAZOLAM DRIP 50 mg/50mL 50 ML IV SCH (23:30)
[2021-11-09] VITALS (56 sets, daily range): BP systolic 103–155; BP diastolic 51–98
[2021-11-09] MEDS: InsuLIN REG 1unit/0.01ml Soln (100units/ml) SC SCH ×3 (05:56→17:48)
[2021-11-09] MEDS: ACCU-CHEK COMFORT CURVE STRIP VI SCH ×3 (05:56→17:47)
[2021-11-09] MEDS: FAMOTIDINE (10MG/ML) 2ML VL IV SCH ×2 (10:22→22:01)
[2021-11-09] MEDS: METOPROLOL TARTRATE 50 MG TAB PO SCH ×2 (10:23→22:02)
[2021-11-09] MEDS: DOXYCYCLINE 100MG/250ML 250 ML IV SCH ×2 (10:23→22:02)
[2021-11-09] MEDS: ASPirin 81 mg TAB PO SCH (10:23)
[2021-11-09] MEDS: FUROSEMIDE 40 MG/4 ML VIAL IV SCH (10:40)
[2021-11-09] MEDS: MICAFUNGIN SODIUM 100 MG in SODIUM CHL 0.9% 100 ML IV SCH (10:48)
[2021-11-09 10:57] LABS: Basophils # (auto) 0.1 10 ^3/uL (0-0.2); Basophils % (auto) 0.6 % (0.0-2.0); Eosinophils # (auto) 0.1 10 ^3/uL (0-0.8); Eosinophils % (auto) 1.1 % (0.0-7.0); Hematocrit 32.8 % (36.0-46.0); Hemoglobin 10.1 g/dL (12.2-16.2); Lymphocytes # (auto) 1.1 10 ^3/uL (0.4-5.4); Lymphocytes % (auto) 8.4 % (10.0-50.0); Mean Corpuscular Hemoglobin 30.7 pg (28.0-32.0); Mean Corpuscular Hgb Conc. 30.9 g/dL (32.0-36.0); Mean Corpuscular Volume 99.3 fL (80.0-100.0); Monocytes # (auto) 1.1 10 ^3/uL (0-1.3); Monocytes % (auto) 8.7 % (0.0-12.0); Neutrophils # (auto) 10.4 10 ^3/uL (1.6-8.6); Neutrophils % (auto) 81.2 % (37.0-80.0); Nucleated Red Blood Cells % 0.1 %; Red Blood Cells 3.31 10^6/uL (4.0-5.20); White Blood Cell 12.8 10^3/uL (4.4-10.8)
[2021-11-09] MEDS: LISINOPRIL 20 MG TAB PO SCH (11:05)
[2021-11-09 13:08] LABS: Anion Gap 8 (5-15); BUN/Creatinine Ratio 56.8; Blood Urea Nitrogen 25 mg/dL (7-18); Calcium 9.9 mg/dL (8.5-10.1); Carbon Dioxide 28 mmol/L (21-32); Chloride 102 mmol/L (98-107); GFR African American 186 mL/min; GFR Non-African American 154 mL/min; Glucose 105 mg/dL (74-106); Potassium 4.2 mmol/L (3.5-5.1); Sodium 138 mmol/L (136-145)
[2021-11-09] MEDS: cefTRIAXone 1GM/50ML D5W 50 ML IV SCH (20:41)
[2021-11-09] MEDS: ATORVASTATIN 20 MG TAB PO SCH (22:00)
[2021-11-09] MEDS: PROPOFOL 100 ML IV SCH (22:45)
[2021-11-09] MEDS: NOREPINEPHRINE 8 MG/250ML KIT 250 ML IV SCH (23:00)
[2021-11-09] MEDS: MIDAZOLAM DRIP 50 mg/50mL 50 ML IV SCH (23:30)
[2021-11-10] VITALS (57 sets, daily range): BP systolic 97–185; BP diastolic 53–96
[2021-11-10] MEDS: InsuLIN REG 1unit/0.01ml Soln (100units/ml) SC SCH ×5 (00:52→23:27)
[2021-11-10] MEDS: ACCU-CHEK COMFORT CURVE STRIP VI SCH ×5 (06:25→23:27)
[2021-11-10] MEDS: ASPirin 81 mg TAB PO SCH (10:17)
[2021-11-10] MEDS: FUROSEMIDE 40 MG/4 ML VIAL IV SCH (10:18)
[2021-11-10] MEDS: FAMOTIDINE (10MG/ML) 2ML VL IV SCH ×2 (10:18→21:06)
[2021-11-10] MEDS: LISINOPRIL 20 MG TAB PO SCH (10:19)
[2021-11-10] MEDS: METOPROLOL TARTRATE 50 MG TAB PO SCH ×2 (10:19→21:06)
[2021-11-10] MEDS: DOXYCYCLINE 100MG/250ML 250 ML IV SCH ×2 (10:20→22:09)
[2021-11-10] MEDS: MICAFUNGIN SODIUM 100 MG in SODIUM CHL 0.9% 100 ML IV SCH (10:20)
[2021-11-10] MEDS: methylPREDNISolone SOD SUCC 40 MG/ML VL IV SCH ×2 (14:42→21:06)
[2021-11-10] MEDS: cefTRIAXone 1GM/50ML D5W 50 ML IV SCH (21:06)
[2021-11-10] MEDS: ATORVASTATIN 20 MG TAB PO SCH (21:07)
[2021-11-10] MEDS: PROPOFOL 100 ML IV SCH (22:45)
[2021-11-11] VITALS (66 sets, daily range): BP systolic 71–162; BP diastolic 36–89
[2021-11-11] MEDS: NOREPINEPHRINE 8 MG/250ML KIT 250 ML IV SCH (00:46)
[2021-11-11] MEDS: ACCU-CHEK COMFORT CURVE STRIP VI SCH ×3 (06:02→18:01)
[2021-11-11] MEDS: methylPREDNISolone SOD SUCC 40 MG/ML VL IV SCH ×3 (06:02→22:58)
[2021-11-11] MEDS: InsuLIN REG 1unit/0.01ml Soln (100units/ml) SC SCH ×3 (06:03→18:04)
[2021-11-11] MEDS: BUDESONIDE (INHALATION) 0.5 MG/2 ML NEB NEB SCH ×2 (10:00→22:16)
[2021-11-11] MEDS: MIDAZOLAM DRIP 50 mg/50mL 50 ML IV SCH (10:16)
[2021-11-11] MEDS: MICAFUNGIN SODIUM 100 MG in SODIUM CHL 0.9% 100 ML IV SCH (10:32)
[2021-11-11] MEDS: FUROSEMIDE 40 MG/4 ML VIAL IV SCH (10:33)
[2021-11-11] MEDS: DOXYCYCLINE 100MG/250ML 250 ML IV SCH (10:33)
[2021-11-11] MEDS: FAMOTIDINE (10MG/ML) 2ML VL IV SCH ×2 (10:33→22:58)
[2021-11-11] MEDS: METOPROLOL TARTRATE 50 MG TAB PO SCH ×2 (10:33→22:58)
[2021-11-11] MEDS: LISINOPRIL 20 MG TAB PO SCH (10:34)
[2021-11-11] MEDS: ASPirin 81 mg TAB PO SCH (10:34)
[2021-11-11] MEDS: IPRATROPIUM BROM 0.5 MG/2.5ML INH SOL NEB SCH ×4 (14:00→22:16)
[2021-11-11] MEDS: ALBUTEROL SULF 2.5 MG/0.5ML(0.5%) NEB SOLN NEB SCH ×4 (14:00→22:16)
[2021-11-11] MEDS: ATORVASTATIN 20 MG TAB PO SCH (22:00)
[2021-11-11] MEDS: cefTRIAXone 1GM/50ML D5W 50 ML IV SCH (22:58)
[2021-11-12] VITALS (85 sets, daily range): BP systolic 74–215; BP diastolic 35–98
[2021-11-12] MEDS: ACCU-CHEK COMFORT CURVE STRIP VI SCH ×4 (00:18→18:05)
[2021-11-12] MEDS: DOXYCYCLINE 100MG/250ML 250 ML IV SCH ×3 (00:36→23:00)
[2021-11-12] MEDS: ALBUTEROL SULF 2.5 MG/0.5ML(0.5%) NEB SOLN NEB SCH ×6 (03:00→22:04)
[2021-11-12] MEDS: IPRATROPIUM BROM 0.5 MG/2.5ML INH SOL NEB SCH ×6 (03:00→22:04)
[2021-11-12 04:39] LABS: Basophils # (auto) 0 10 ^3/uL (0-0.2); Basophils % (auto) 0.2 % (0.0-2.0); Eosinophils # (auto) 0 10 ^3/uL (0-0.8); Hematocrit 29.8 % (36.0-46.0); Hemoglobin 9.5 g/dL (12.2-16.2); Lymphocytes # (auto) 0.5 10 ^3/uL (0.4-5.4); Lymphocytes % (auto) 2.7 % (10.0-50.0); Mean Corpuscular Hemoglobin 30.2 pg (28.0-32.0); Mean Corpuscular Hgb Conc. 31.7 g/dL (32.0-36.0); Mean Corpuscular Volume 95.2 fL (80.0-100.0); Monocytes # (auto) 0.5 10 ^3/uL (0-1.3); Monocytes % (auto) 2.5 % (0.0-12.0); Neutrophils # (auto) 18.5 10 ^3/uL (1.6-8.6); Neutrophils % (auto) 94.6 % (37.0-80.0); Nucleated Red Blood Cells % 0.1 %; Red Blood Cells 3.14 10^6/uL (4.0-5.20); Red Cell Distribution Width 13.6 % (11.8-14.3); White Blood Cell 19.5 10^3/uL (4.4-10.8)
[2021-11-12 04:58] LABS: BUN/Creatinine Ratio 41.9; Calcium 9.5 mg/dL (8.5-10.1); Potassium 3.4 mmol/L (3.5-5.1)
[2021-11-12] MEDS: methylPREDNISolone SOD SUCC 40 MG/ML VL IV SCH ×3 (06:16→22:46)
[2021-11-12] MEDS: BUDESONIDE (INHALATION) 0.5 MG/2 ML NEB NEB SCH ×2 (06:21→18:30)
[2021-11-12] MEDS: InsuLIN REG 1unit/0.01ml Soln (100units/ml) SC SCH ×4 (06:21→18:05)
[2021-11-12] MEDS: LORazepam 2MG/ML-1ML VIAL IV PRN (09:15)
[2021-11-12] MEDS: POTASSIUM CHL 20MEQ/100ML 100 ML IV SCH ×2 (09:15→11:08)
[2021-11-12] MEDS: MORPHINE SULFATE INJ 2 MG/ml SYRG IV PRN ×2 (09:16→22:49)
[2021-11-12] MEDS: FAMOTIDINE (10MG/ML) 2ML VL IV SCH ×2 (09:29→22:46)
[2021-11-12] MEDS: MICAFUNGIN SODIUM 100 MG in SODIUM CHL 0.9% 100 ML IV SCH (09:29)
[2021-11-12] MEDS: FUROSEMIDE 40 MG/4 ML VIAL IV SCH (09:30)
[2021-11-12] MEDS: LISINOPRIL 20 MG TAB PO SCH (10:00)
[2021-11-12] MEDS: METOPROLOL TARTRATE 50 MG TAB PO SCH ×2 (10:00→22:00)
[2021-11-12] MEDS: ASPirin 81 mg TAB PO SCH (10:00)
[2021-11-12] MEDS: NOREPINEPHRINE 8 MG/250ML KIT 250 ML IV SCH (10:27)
[2021-11-12] MEDS ORDERED: hydrALAZINE HCL 20 MG/ML VL IV PRN (11:15)
[2021-11-12] MEDS ORDERED: hydrALAZINE HCL 20 MG/ML VL IV SCH (12:00)
[2021-11-12] MEDS: CEFEPIME 1GM/ 50ML 50 ML IV SCH ×2 (15:22→22:48)
[2021-11-12] MEDS: ATORVASTATIN 20 MG TAB PO SCH (22:00)
[2021-11-13] VITALS (67 sets, daily range): BP systolic 62–184; BP diastolic 41–90
[2021-11-13] MEDS: ALBUTEROL SULF 2.5 MG/0.5ML(0.5%) NEB SOLN NEB SCH ×4 (02:08→14:00)
[2021-11-13] MEDS: IPRATROPIUM BROM 0.5 MG/2.5ML INH SOL NEB SCH ×4 (02:08→14:00)
[2021-11-13] MEDS: CEFEPIME 1GM/ 50ML 50 ML IV SCH ×2 (06:00→11:52)
[2021-11-13] MEDS: InsuLIN REG 1unit/0.01ml Soln (100units/ml) SC SCH ×3 (06:00→15:13)
[2021-11-13] MEDS: ACCU-CHEK COMFORT CURVE STRIP VI SCH ×3 (06:00→15:13)
[2021-11-13] MEDS: methylPREDNISolone SOD SUCC 40 MG/ML VL IV SCH ×2 (06:00→15:12)
[2021-11-13] MEDS: BUDESONIDE (INHALATION) 0.5 MG/2 ML NEB NEB SCH (06:16)
[2021-11-13] MEDS: NOREPINEPHRINE 8 MG/250ML KIT 250 ML IV SCH (07:57)
[2021-11-13] MEDS ORDERED: LORazepam 2MG/ML-1ML VIAL IV PRN (11:00)
[2021-11-13] MEDS: MICAFUNGIN SODIUM 100 MG in SODIUM CHL 0.9% 100 ML IV SCH (11:52)
[2021-11-13] MEDS: FUROSEMIDE 40 MG/4 ML VIAL IV SCH (11:52)
[2021-11-13] MEDS: ASPirin 81 mg TAB PO SCH (11:53)
[2021-11-13] MEDS: DOXYCYCLINE 100MG/250ML 250 ML IV SCH (11:53)
[2021-11-13] MEDS: FAMOTIDINE (10MG/ML) 2ML VL IV SCH (11:53)
[2021-11-13] MEDS: METOPROLOL TARTRATE 50 MG TAB PO SCH (11:53)
[2021-11-13] MEDS: LISINOPRIL 20 MG TAB PO SCH (11:55)
[2021-11-13] MEDS: MORPHINE SULFATE INJ 2 MG/ml SYRG IV PRN ×2 (14:51→16:16)
[2021-11-13] MEDS: LORazepam 2MG/ML-1ML VIAL IV PRN (14:51)
== END 2021-11-13 20:15 | DRG 870 ==
LOC: ER 22:31 → EDBD 22:31 → ICU CENTRL 11-01 03:21 → TELE 11-01 08:13 → ICU WEST 11-01 08:38
PROVIDERS: ADMIT Nurse Practitioner Family; ATTEND Family Medicine
PROC: 5A1955Z Respiratory Ventilation, Greater than 96 Consecutive Hours (ICD-10-PCS; 2021-11-01)
PROC: 0BH17EZ Insertion of Endotracheal Airway into Trachea, Via Natural or Artificial Opening (ICD-10-PCS; 2021-11-01)
PROC: B41F1ZZ Fluoroscopy of Right Lower Extremity Arteries using Low Osmolar Contrast (ICD-10-PCS; 2021-11-04)
PROC: B2111ZZ Fluoroscopy of Multiple Coronary Arteries using Low Osmolar Contrast (ICD-10-PCS; 2021-11-04)
PROC: 4A023N7 Measurement of Cardiac Sampling and Pressure, Left Heart, Percutaneous Approach (ICD-10-PCS; 2021-11-04)
PROC: 5A09457 Assistance with Respiratory Ventilation, 24-96 Consecutive Hours, Continuous Positive Airway Pressure (ICD-10-PCS; principal; 2021-11-12)
DX: A41.9 Sepsis, unspecified organism (principal); J18.9 Pneumonia, unspecified organism; J96.21 Acute and chronic respiratory failure with hypoxia; I21.4 Non-ST elevation (NSTEMI) myocardial infarction; J44.1 Chronic obstructive pulmonary disease with (acute) exacerbation; J98.11 Atelectasis; J44.0 Chronic obstructive pulmonary disease with (acute) lower respiratory infection; I13.0 Hypertensive heart and chronic kidney disease with heart failure and stage 1 through stage 4 chronic kidney disease, or unspecified chronic kidney disease; Z20.822 Contact with and (suspected) exposure to COVID-19; R73.9 Hyperglycemia, unspecified; N18.9 Chronic kidney disease, unspecified; E78.5 Hyperlipidemia, unspecified; I50.9 Heart failure, unspecified; I25.10 Atherosclerotic heart disease of native coronary artery without angina pectoris; E78.00 Pure hypercholesterolemia, unspecified; Z91.012 Allergy to eggs; Z80.1 Family history of malignant neoplasm of trachea, bronchus and lung; Z80.8 Family history of malignant neoplasm of other organs or systems
CPT/HCPCS: 31500; 36415; 36556; 36600; 70450; 71045; 71260; 74177; 75710; 80048; 80053; 80307; 81001; 82805; 82962; 83036; 83605; 83880; 84484; 85025; 85379; 85610; 85730; 87040; 87070; 87077; 87081; 87086; 87186; 87205; 93005; 93306; 93458; 93970; 94002; 94003; 94640; 94660; 96365; 96366; 96367; 96375; 99152; A4618; G0378; J0696; J2001; J2248; J2250; J2704; J3480; J3490; J7060; Q9967